=== PATIENT | male | born 1975 | race Caucasian/White ===

== ENCOUNTER 2018-03-07 17:41 | Emergency (ER) | payer MEDICAID, SELFPAY ==
[2018-03-07 17:49] VITALS: BP 142/105; PULSE 73; RESP 16; TEMP 36.7; O2SAT 96
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
[2018-03-07] MEDS: Ibuprofen 600 MG TAB PO (19:07)
== END 2018-03-07 19:17 | disposition home or self-care (01) ==
PROVIDERS: Emergency Provider Physician Assistant; PCP Nurse Practitioner
DX: S63.91XA Sprain of unspecified part of right wrist and hand, initial encounter (principal); W22.8XXA Striking against or struck by other objects, initial encounter
CPT/HCPCS: 29125; 99284; 73110; 73130; 99282; L3908

== ENCOUNTER 2018-09-16 00:18 | Outpatient (CLI) | payer MEDICAID, SELFPAY ==
--- NOTE | 2018-09-16 09:51 | DI.MRI_ITS ---
SYMPTOM/DIAGNOSIS: SEVERE LOW BACK PAIN, LUMBAR RADICULOPATHY, M54.16, M54.9,R20.0 LUMBAR SPINE MRI: Comparison is made with CT of the lumbar spine dated 05/11/16. T 1, T 2 and STIR sagittal and T 1 and T 2 axial sequences were performed. The exam is mildly limited by patient body habitus. There is mild motion. The L 1-2 and L 2-3 discs are well maintained in height. No neural foraminal narrowing or central spinal canal stenosis is seen at these levels. There is mild to moderate loss of disc height of the L 3-4 disc. There are small endplate osteophytes. There is a Schmorl's node at the inferior endplate of L 3. There is minimal disc bulging. There is no significant neural foraminal narrowing or central canal stenosis. The L 4-5 disc is unremarkable. There is no significant neural foraminal narrowing or central canal stenosis. There are bilateral L 5 pars defects which appear old, unchanged when compared with the previous CT. There is minimal L 5-S 1 spondylolisthesis, unchanged. The disc shows minimal posterior bulging. There is no central canal stenosis or neural foraminal narrowing. The aorta is normal in diameter where visualized. IMPRESSION: Stable degenerative disc changes at L 3-4. Stable findings of L 5 spondylolisthesis and slight L 5-S 1 spondylolysis. No disc herniation is seen at any level.
== END 2018-09-16 00:38 ==
PROVIDERS: PCP Nurse Practitioner; Visit Provider Nurse Practitioner
DX: M43.17 Spondylolisthesis, lumbosacral region (principal); M54.16 Radiculopathy, lumbar region; M54.5 Low back pain; R20.0 Anesthesia of skin; M51.37 Other intervertebral disc degeneration, lumbosacral region; M43.07 Spondylolysis, lumbosacral region
CPT/HCPCS: 72148

== ENCOUNTER 2020-03-30 01:36 | Outpatient (CLI) | payer MEDICAID, SELFPAY ==
--- NOTE | 2020-03-30 15:23 | DI.RAD_ITS ---
EXAM: XR LUMBAR SPINE COMPLETE CLINICAL HISTORY: Acute on chronic pain, r/o frx,SPONDYLOLISTHESIS L5-S1,M43.17. TECHNIQUE: 2D digital imaging was performed. COMPARISON: CT LUMBAR SPINE WITHOUT CONTRAST from 05/11/2016 FINDINGS: The vertebral bodies are well maintained in height. There is mild narrowing of the L3-4 disc space. The remainingdisc spaces are well maintained. There are small endplate osteophytes greatest at L3- 4. Bilateral L5 spondylolysis and mild L5-S1 spondylolisthesis appears unchanged. The SI joints are unremarkable. Surgical clips are noted in the right upper quadrant. IMPRESSION: Stable L5 spondylolysis and slight L5-S1 spondylolisthesis. DATA REPOSITORY: RADIATION DOSE DELIVERED:
== END 2020-03-30 01:56 ==
PROVIDERS: PCP Nurse Practitioner; Visit Provider Family Medicine
DX: M43.17 Spondylolisthesis, lumbosacral region (principal); M43.06 Spondylolysis, lumbar region
CPT/HCPCS: 72110

== ENCOUNTER 2020-04-23 03:23 | Outpatient (CLI) | payer MEDICAID, SELFPAY ==
[2020-04-23 15:37] LABS: HCT 46.6 % (40.0-50.0); HGB 16.1 g/dL (13.5-17.5); MCH 30.2 pg (27.0-33.0); MCHC 34.5 % (32.0-36.0); MCV 87.4 fL (80-95); MPV 9.6 fL (8.0-11.0); Platelet Count 275 10^3/uL (130-400); RBC 5.33 10^6/uL (4.36-5.78); RDW 12.5 % (11.8-14.1); RDW-SD 39.8 fL; WBC 10.28 10^3/uL (4.4-10.8)
[2020-04-23 16:21] LABS: ALT 48 U/L (16-63); AST 23 U/L (15-37); Albumin 4.2 g/dL (3.4-5.0); Alkaline Phosphatase 89 U/L (46-116); BUN 13 mg/dL (7-18); Bilirubin, Total 0.9 mg/dL (0.2-1.0); CREATININE 0.97 mg/dL (0.70-1.30); Calcium 8.9 mg/dL (8.5-10.1); Calculated LDL 115 mg/dL (<100); Chloride 103 mmol/L (98-107); Cholesterol 171 mg/dL (<200); Glucose 103 mg/dL (74-106); HDL Cholesterol 31 mg/dL (40-60); Potassium 4.1 mmol/L (3.5-5.1); Sodium 139 mmol/L (136-145); Total Protein 7.5 g/dL (6.4-8.2); Triglyceride 125 mg/dL (<150)
== END 2020-04-23 03:43 ==
PROVIDERS: PCP Nurse Practitioner; Visit Provider Nurse Practitioner
DX: E11.9 Type 2 diabetes mellitus without complications (principal); E66.9 Obesity, unspecified
CPT/HCPCS: 36415; 80053; 80061; 85027

== ENCOUNTER 2021-02-08 01:00 | Outpatient (CLI) | payer MEDICAID, SELFPAY ==
--- NOTE | 2021-02-08 06:30 | DI.US_ITS ---
Exam(s) US LOWER EXTREMITY VENOUS LT EXAM: US LOWER EXTREMITY VENOUS LT CLINICAL HISTORY: LLE edema 5 days,R60.0 TECHNIQUE: Left lower extremity venous ultrasound performed using grayscale, color-flow, and spectra l Doppler analysis. COMPARISON: No exams were available for comparison FINDINGS: The left common femoral, femoral and popliteal veins demonstrate normal compressibility, augmentation , and color Doppler. The posterior tibial veins are patent. The saphenofemoral junction is unremarka ble. There is no evidence of a Fonseca cyst. The soft tissues are unremarkable. IMPRESSION: No DVT. DATA REPOSITORY:
== END 2021-02-08 01:20 ==
PROVIDERS: PCP Nurse Practitioner; Visit Provider Nurse Practitioner
DX: R60.0 Localized edema (principal)
CPT/HCPCS: 93971

== ENCOUNTER 2021-11-23 15:28 | Outpatient (REF) | payer MEDICAID, SELFPAY ==
[2021-11-23 18:49] LABS: HCT 47.5 % (40.0-50.0); HGB 16.5 g/dL (13.5-17.5); MCH 30.3 pg (27.0-33.0); MCHC 34.7 % (32.0-36.0); MCV 87 fL (80-95); MPV 9.5 fL (8.0-11.0); Platelet Count 238 10^3/uL (130-400); RBC 5.45 10^6/uL (4.36-5.78); RDW 13.1 % (11.8-14.1); RDW-SD 41.2 fL; WBC 9.86 10^3/uL (4.4-10.8)
[2021-11-23 19:10] LABS: ALT 41 U/L (16-63); AST 23 U/L (15-37); Alkaline Phosphatase 76 U/L (46-116); Anion Gap 11.5 mmol/L (3-11); BUN 13 mg/dL (7-18); Bilirubin, Total 0.9 mg/dL (0.2-1.0); CO2 27.5 mmol/L (21.0-32.0); CREATININE 1.1 mg/dL (0.70-1.30); Calcium 8.5 mg/dL (8.5-10.1); Calculated LDL 138 mg/dL (<100); Chloride 101 mmol/L (98-107); Cholesterol 201 mg/dL (<200); Glucose 127 mg/dL (74-106); HDL Cholesterol 33 mg/dL (40-60); Potassium 4.2 mmol/L (3.5-5.1); Sodium 140 mmol/L (136-145); Total Protein 7.2 g/dL (6.4-8.2); Triglyceride 153 mg/dL (<150)
[2021-11-23 19:52] LABS: Hemoglobin A1C 6.3 % (<5.7)
== END 2021-11-23 15:29 | disposition home or self-care (01) ==
LOC: LBN 15:28
PROVIDERS: PCP Nurse Practitioner; Referring Provider Nurse Practitioner; Visit Provider Nurse Practitioner
DX: E11.9 Type 2 diabetes mellitus without complications (principal); I10 Essential (primary) hypertension; E66.9 Obesity, unspecified; F41.8 Other specified anxiety disorders
CPT/HCPCS: 80053; 80061; 85027; 83036

== ENCOUNTER 2022-07-06 03:18 | Outpatient (CLI) | payer MEDICAID, SELFPAY ==
[2022-07-06 15:34] LABS: ALT 47 U/L (16-63); AST 25 U/L (15-37); Albumin 3.9 g/dL (3.4-5.0); Alkaline Phosphatase 134 U/L (46-116); Anion Gap 11.7 mmol/L (3-11); BUN 14 mg/dL (7-18); Bilirubin, Total 0.5 mg/dL (0.2-1.0); CO2 30.3 mmol/L (21.0-32.0); CREATININE 1.3 mg/dL (0.70-1.30); Calcium 9.7 mg/dL (8.5-10.1); Calculated LDL 30 mg/dL (<100); Chloride 99 mmol/L (98-107); Cholesterol 101 mg/dL (<200); Estimated GFR 68.61 (mL/min/1.73m2); Glucose 248 mg/dL (74-106); HDL Cholesterol 28 mg/dL (40-60); Sodium 141 mmol/L (136-145); TSH (W/Ref FT4) 0.96 uIU/mL (0.36-3.74); Total Protein 7.6 g/dL (6.4-8.2); Triglyceride 218 mg/dL (<150)
[2022-07-06 15:39] LABS: Potassium 2.6 mmol/L (3.5-5.1)
[2022-07-14 14:03] LABS: Testosterone, Total 164 ng/dL (240-950)
== END 2022-07-06 03:19 | disposition home or self-care (01) ==
LOC: LBO 03:19
PROVIDERS: PCP Nurse Practitioner; Visit Provider Nurse Practitioner
DX: I10 Essential (primary) hypertension (principal); E11.9 Type 2 diabetes mellitus without complications; E78.5 Hyperlipidemia, unspecified; R53.83 Other fatigue; E66.8 Other obesity
CPT/HCPCS: 36415; 80053; 80061; 84402; 84403; 84443

== ENCOUNTER 2022-10-25 15:58 | Outpatient (REF) | payer MEDICAID, SELFPAY ==
[2022-10-25 18:52] LABS: Anion Gap 8.7 mmol/L (3-11); BUN 16 mg/dL (7-18); CO2 31.3 mmol/L (21.0-32.0); CREATININE 1.1 mg/dL (0.70-1.30); Calcium 9.6 mg/dL (8.5-10.1); Chloride 100 mmol/L (98-107); Estimated GFR 83.32 (mL/min/1.73m2); Glucose 176 mg/dL (74-106); Potassium 3.1 mmol/L (3.5-5.1); Sodium 140 mmol/L (136-145)
== END 2022-10-25 15:59 | disposition home or self-care (01) ==
LOC: LBN 15:58
PROVIDERS: PCP Nurse Practitioner; Visit Provider Nurse Practitioner
DX: E11.9 Type 2 diabetes mellitus without complications (principal); E87.6 Hypokalemia; I10 Essential (primary) hypertension
CPT/HCPCS: 80048

== ENCOUNTER 2022-12-14 00:40 | Outpatient (CLI) | payer MEDICAID, SELFPAY ==
--- NOTE | 2022-12-14 09:42 | DI.CT_ITS ---
Exam(s) CT LUMBAR SPINE WO EXAM: CT LUMBAR SPINE WO CLINICAL HISTORY: chronic low back pain,SPONDYLOLISTHESIS L 5-S1,RADICULOPATHY,PAIN DOWN LEGS. TECHNIQUE: Imaging Protocol: Axial computed tomography images with coronal and sagittal reformatted images were created and reviewed COMPARISON: CT LUMBAR SPINE WITHOUT CONTRAST from 05/11/2016 FINDINGS: Bones: The last intervertebral disc space is designated the L5/S1 level for the numbering purpose of this examination. The vertebral body heights are well maintained. There is L5 spondylolysis without significant spondylolisthesis. Mild disc space narrowing is seen at L3-L4. There endplate osteophyt es seen at several levels of the lumbar spine particularly at L3-L4 and L4-L5. There is a mild left c onvex curvature of the lower lumbar spine. T12-L1: No disc herniations or bulges are present. No central spinal canal or neural foraminal steno sis. L1-2: No disc herniations or bulges are present. No central spinal canal or neural foraminal stenosi s. L2-3: No disc herniations or bulges are present. No central spinal canal or neural foraminal stenosi s. L3-4: No disc herniations or bulges are present. No central spinal canal or neural foraminal stenosi s. L4-5: No disc herniations or bulges are present. There are degenerative changes seen at L4-L5 includ ing the facets causing moderate right neural foraminal stenosis. There is also mild left neural fora dewayne stenosis. No significant central spinal canal stenosis. L5-S1: No disc herniations or bulges are present. No central spinal canal or neural foraminal stenos is. Soft Tissues: The visualized SI joints and sacrum are will maintained. The paraspinal soft tissues a re unremarkable. IMPRESSION: 1. There is L5 spondylolysis without significant spondylolisthesis. 2. Multilevel degenerative changes in the lumbar spine resulting in neural foraminal narrowing at L4- L5, right greater than left. RADIATION DOSE DELIVERED: 1,244.61mGy.cm Total DLP 1,244.61mGy.cm Total DLP DATA REPOSITORY: All CT scans at this facility are submitted to the National Radiology Data Registry (NRDR) Dose Index Registry (DIR) with the [employer] ([employer]). RADIATION OPTIMIZATION: All CT scans at this facility use at least one of these dose optimization te chniques: automated exposure control; mA and/or kV adjustment per patient size (includes targeted exa ms where dose is matched to clinical indication); or iterative reconstruction.
== END 2022-12-14 01:00 ==
LOC: DI 00:40
PROVIDERS: PCP Nurse Practitioner; Visit Provider Nurse Practitioner
DX: M47.16 Other spondylosis with myelopathy, lumbar region (principal); M99.63 Osseous and subluxation stenosis of intervertebral foramina of lumbar region
CPT/HCPCS: 72131

== ENCOUNTER 2022-12-28 09:35 | Outpatient (REF) | payer MEDICAID, SELFPAY ==
[2023-01-01 16:44] LABS: Testosterone, Total 191 ng/dL (240-950)
== END 2022-12-28 09:36 | disposition home or self-care (01) ==
LOC: LBN 09:35
PROVIDERS: PCP Nurse Practitioner; Visit Provider Nurse Practitioner Gerontology
DX: R53.83 Other fatigue (principal); E29.1 Testicular hypofunction
CPT/HCPCS: 84403

== ENCOUNTER 2023-02-08 04:05 | Outpatient (CLI) | payer MEDICAID, SELFPAY ==
[2023-02-08 08:45] LABS: HCT 50.9 % (40.0-50.0); HGB 16.9 g/dL (13.5-17.5); MCH 29.5 pg (27.0-33.0); MCHC 33.2 % (32.0-36.0); MCV 89 fL (80-95); Platelet Count 218 10^3/uL (130-400); RBC 5.73 10^6/uL (4.36-5.78); RDW 13.2 % (11.8-14.1); RDW-SD 42.6 fL; WBC 10.16 10^3/uL (4.4-10.8)
[2023-02-08 09:43] LABS: Vitamin B12 721 pg/mL (193-986)
[2023-02-08 21:47] LABS: PSA, Screening 0.5 ng/mL (<=2.5)
[2023-02-09 14:13] LABS: Albumin 56.5 % (55.8-66.1); Albumin g/dL 3.8 g/dL (3.6-5.2); Total Protein 6.8 g/dL (6.3-8.2)
[2023-02-12 16:57] LABS: Testosterone, Total 195 ng/dL (240-950)
== END 2023-02-08 04:06 | disposition home or self-care (01) ==
LOC: LBO 04:06
PROVIDERS: Nurse Practitioner Adult Health; Nurse Practitioner Gerontology; PCP Nurse Practitioner; Visit Provider Nurse Practitioner
DX: G62.9 Polyneuropathy, unspecified (principal); E29.1 Testicular hypofunction; R53.83 Other fatigue
CPT/HCPCS: 36415; 84153; 84403; 85027; 82607; 84165

== ENCOUNTER 2023-02-28 03:59 | Outpatient (CLI) | payer MEDICAID, SELFPAY ==
[2023-02-28 15:21] LABS: Abs Immature Grans 0.03 10^3/uL (0.0-0.06); Absolute Basophil Count 0.06 10^3/uL (0.0-0.2); Absolute Eosinophil Count 0.16 10^3/uL (0.0-0.7); Absolute Lymphocyte Count 2.55 10^3/uL (1.2-3.4); Absolute Monocyte Count 0.59 10^3/uL (0.1-0.8); Absolute Neutrophil Count 6.07 10^3/uL (1.2-6.7); Basophils % 0.6; Eosinophils % 1.7; HCT 49.1 % (40.0-50.0); HGB 17.1 g/dL (13.5-17.5); Immature Grans % 0.3; MCH 30.4 pg (27.0-33.0); MCHC 34.8 % (32.0-36.0); MCV 87 fL (80-95); MPV 9.6 fL (8.0-11.0); Monocytes % 6.2; Neutrophils % 64.2; Platelet Count 226 10^3/uL (130-400); RBC 5.63 10^6/uL (4.36-5.78); RDW 12.7 % (11.8-14.1); RDW-SD 40.7 fL; WBC 9.46 10^3/uL (4.4-10.8)
[2023-02-28 16:21] LABS: Anion Gap 11.4 mmol/L (3-11); BUN 11 mg/dL (7-18); CO2 25.6 mmol/L (21.0-32.0); Calcium 9.1 mg/dL (8.5-10.1); Chloride 105 mmol/L (98-107); Estimated GFR 93.42 (mL/min/1.73m2); Glucose 133 mg/dL (74-106); Sodium 142 mmol/L (136-145)
[2023-03-02 15:48] LABS: Erythropoietin 12.9 mIU/mL (2.6 - 18.5)
[2023-03-05 16:53] LABS: JAK2 Result see interpretation
== END 2023-02-28 04:00 | disposition home or self-care (01) ==
PROVIDERS: PCP Nurse Practitioner; Referring Provider Nurse Practitioner; Visit Provider Nurse Practitioner
DX: R71.8 Other abnormality of red blood cells (principal)
CPT/HCPCS: 36415; 80048; 82668; 81270; 85025

== ENCOUNTER → 2023-03-13 00:21 | Outpatient (CLI) | payer MEDICAID, SELFPAY ==
--- NOTE | 2023-03-13 08:00 | DI.RAD_ITS ---
Exam(s) XR LUMBAR SPINE COMP W FLEX/EX EXAM: XR LUMBAR SPINE COMP W FLEX/EX CLINICAL HISTORY: Chronic low back pain,h/o L5 pars defects,m54.50. TECHNIQUE: 2D digital imaging was performed. COMPARISON: No exams were available for comparison FINDINGS: Seven views: Twelfth ribs appear rudimentary. There is no evidence of compression fracture. There is mild anterolisthesis of L5 upon S1. Is diffi cult to determine if this is related to facet arthropathy or pars defects. I suspect pars defects he re. There is no disc space narrowing at L5-S1 level but there is spina bifida occulta at posterior o sseous elements of L5 and this also appears to be a partially transitional vertebra. There is mild narrowing of L4-5 and L3-4 disc spaces and anterior osseous lipping noted both of these levels. Disc spaces above this level are un remarkable. There is no significant scoliosis. Sacroi liac joints appear unremarkable. IMPRESSION: Transitional anatomy as well as mild anterolisthesis L5 upon S1 which appears to be related to probab le pars interarticularis defects at L5 level. I note that there is also spina bifida occulta at the L5 level evident on the frontal view. Mild disc space narrowing is evident at L3-4 and L4-5 levels. There is no listhesis at these levels. No obvious facet arthropathy. DATA REPOSITORY: RADIATION DOSE DELIVERED:
== END ==
PROVIDERS: PCP Nurse Practitioner; Visit Provider Preventive Medicine Occupational Medicine
DX: M54.50 Low back pain, unspecified (principal)
CPT/HCPCS: 72114

== ENCOUNTER 2023-05-31 11:14 | Outpatient (CLI) | payer MEDICAID, SELFPAY ==
--- NOTE | 2023-05-31 06:00 | DI.RAD_ITS ---
Exam(s) XR PAIN CLINIC SACRIOILIAC 2V EXAM: XR PAIN CLINIC SACRIOILIAC 2V CLINICAL HISTORY: DX: Left Sacroiliac Joint Dysfunction TECHNIQUE: 2D and realtime digital imaging was performed. CONTRAST MATERIAL: Refer to procedure report. COMPARISON: No exams were available for comparison FINDINGS: Fluoroscopy was provided for Dr. North during the performance of a left SI joint injection. Please r efer to the procedure report for complete details. Ka,r=9.83 mGy IMPRESSION:
[2023-05-31 12:15] VITALS: BP 112/77; PULSE 82; RESP 20; TEMP 36.4; O2SAT 96
[2023-05-31 12:44] VITALS: BP 115/86; PULSE 77; RESP 11; O2SAT 98
--- NOTE | 2023-05-31 12:45 | PDOC.PAIN_ITS ---
Date of service: 05/31/23 Time of Service: 12:45 Pain Managment Procedure Note Procedure Note Procedure Note: PROCEDURE NOTE LEFT INTRA-ARTICULAR SACROILIAC JOINT INJECTION Date of Service: May 31, 2023 Patient: Angel Muñiz Provider: Thomas North DO, MPH COMMENTS: I previously evaluated the patient in the office and their symptoms in relation to the sacroiliac joint pain have remained the same. Pre-operative diagnosis: Sacroiliac joint dysfunction Post-operative diagnosis: Same Pre-procedure pain: VAS= 7/10 Angel Muñiz has been referred to our [facility] for a Left intra-articular Sacroiliac joint injection. Angel was interviewed and the medical record reviewed. There were no medical, pharmacologic, radiographic or other structural contraindications to attempting a fluoroscopically-guided, contrast-enhanced, intra-articular Sacroiliac joint injection. The risks, benefits, and potential side effects of this procedure were reviewed with the patient. Questions and concerns were addressed. After it was clear that Angel was fully informed about the procedure, the printed consent form was signed by the patient and myself. Angel was placed in the prone position on the fluoroscopy table and an automated blood pressure cuff, 3 lead EKG, and pulse oximeter were applied. The skin entry point for approaching the Left sacroiliac joint was identified under the most advantageous fluoroscopic view and marked. Following thorough Chlorhexadine preparation of the skin and draping with sterile surgical drapes, 2 mls of 1% lidocaine was infiltrated into the skin at the entry point and the surrounding subcutaneous tissues. Next, a 3.5 22G spinal needle was placed under fluoroscopic guidance into the Left sacroiliac joint. Intra-articular placement was confirmed by a clear arthrogram resulting from the injection of 0.25ml of Omnipaque-240. Next, 1 ml of Depo- Medrol 80 mg/ml was injected intra- articularly with an initial reproduction of a significant component of the usual pain. This was followed with 1 ml of 1% Lidocaine. The needle was then removed without difficulty. (49 ml of Omnipaque-240 was wasted). Angel's vital signs were stable throughout the procedure and were as recorded in nursing records. Follow up plans and appointments were discussed with Angel. Post procedure instructions were given as documented in nursing records. Having met discharge criteria, Angel was [facility] from the [facility]. COMMENTS: Post-procedure pain: VAS= 5/10. If the patient receives at least 50% improvement in pain and/or function for at least 3 months, this procedure can be repeated if needed. I personally performed this entire procedure. THOMAS NORTH DO, MPH ABPMR-subspecialty board certification in Pain Medicine [facility]
[2023-05-31] MEDS: methylPREDNISolone ACETATE 80 MG/ML VIAL IJ (12:49)
[2023-05-31] MEDS: Nerve Block Tray 1 EACH MC (12:49)
[2023-05-31] MEDS: Omnipaque 240 MG/ML 50 ML BTL IJ (12:49)
== END 2023-05-31 11:15 | disposition home or self-care (01) ==
LOC: PC 11:15
PROVIDERS: PCP Nurse Practitioner; Visit Provider Preventive Medicine Occupational Medicine
DX: M46.1 Sacroiliitis, not elsewhere classified (principal)
CPT/HCPCS: 00123; 27096; 72200; J1040; Q9967

== ENCOUNTER 2023-11-02 08:20 | Day surgery (SDC) | payer MEDICAID, SELFPAY ==
--- NOTE | 2023-11-01 21:13 | W.PM.DSUDISC ---
Date of service: 11/02/23 Time of Service: 10:33 Discharge Plan Disposition Patient Disposition: Home Condition: Good Discharge Details Reason For Visit: screening colonoscopy Attending Provider: Madhu Aguiar Primary Care Provider: Ariana Yu Home Meds and New Rx's Prescriptions: Continued lidocaine-prilocaine 2.5-2.5 % cream 5 g topical ONCE PRN (Reason: peripheral neuropathy) Qty: 30 6RF Rx Instructions: Apply to feet up to 4 times per day as needed for pain. atorvastatin 40 mg tablet 40 mg PO QPM Qty: 90 3RF Jardiance 10 mg tablet 10 mg PO DAILY Qty: 90 3RF lisinopril 20 mg tablet 20 mg PO DAILY Qty: 90 3RF acetaminophen 500 mg capsule 500 mg PO Q6H PRN dulaglutide 4.5 mg/0.5 mL pen injector See Rx Instructions .ROUTE .COMPLEX Qty: 2 6RF Dose Instruction: INJECT 0.5ML SUBCUTANEOUSLY EVERY WEEK Rx Instructions: INJECT 0.5ML SUBCUTANEOUSLY EVERY WEEK testosterone cypionate [Depo-Testosterone] 200 mg/mL oil 100 mg IM Q2W Qty: 10 3RF Rx Instructions: 0.5ml intramuscular every 2 weeks (DME) blood-glucose meter Misc See Rx Instructions .ROUTE .MEDSUPPLY Qty: 1 0RF Rx Instructions: As directed to check blood glucose. No insulin. Dispense covered brand. (DME) Blood Glucose Test Strip See Rx Instructions .ROUTE .MEDSUPPLY Qty: 200 3RF Rx Instructions: As directed to check blood glucose BID. No insulin. Dispense covered brand. (DME) lancets Misc See Rx Instructions .ROUTE .MEDSUPPLY Qty: 100 3RF Rx Instructions: As directed to check blood glucose daily. No insulin. Dispense covered brand. Discontinued bisacodyl [Dulcolax (bisacodyl)] 5 mg tablet,delayed release (DR/EC) 5 mg PO ONCE Qty: 4 0RF Rx Instructions: Take per colonoscopy instructions provided by ordering providers office polyethylene glycol 3350 17 gram/dose powder 17 g PO ONCE Qty: 238 0RF Rx Instructions: Take per colonoscopy instructions provided by ordering providers office Discharge Instructions Instructions: Colon polyps Additional Instructions: David, we were able to complete your colonoscopy today without any difficulty. Your prep was adequate, and I could see everything clearly. I did find 1 single polyp, which I removed today. That polyp will be tested, and once we know the nature of the polyp, that information will inform the timing of your next colonoscopy. These results usually take a week or so, but when the office has them, we will be in touch with recommendations. If you need anything in the meantime, please do not hesitate to call or ask at any point. 1. If tolerated, consume a soft, low fiber diet for 1-2 days. 2[address] Do not drive, drink alcohol, operate machinery, make critical decisions, or do activities that require coordination or balance for 24 hours. 3. Because air was put into your colon during the procedure, expelling air from your rectum (passing gas or farting) is normal. 4. You may not have a bowel movement for 1-3 days because of the colonoscopy prep. This is normal. 5. Go directly to the emergency room if you notice any of the following: Develop chills (warm to touch), or if you have a thermometer and your temperature is above 101 Difficulty breathing or difficultly swallowing Persistent vomiting Severe abdominal pain, other than gas cramps Severe chest pain Black, tarry stools Any bleeding ? exceeding one tablespoon 6. Call your physician if the site where your intravenous was started becomes red, swollen, painful, and warm to touch. 7. Your physician has reviewed your pre-procedure medications. Please continue to take those medications as previously ordered. You will be given specific information/education regarding any changes to your medications before leaving. Stand Alone Forms: Anesthesia Discharge Inst., Stacey Sutherland (DSU) Activity:: Activity as Tolerated Diet:: As Tolerated Discharge Orders Discharge Orders: Discharge Order (Routine); Ordered 11/01/23 Ordered By: Madhu Aguiar DS: Diagnosis Discharge Diagnosis (1) Encounter for screening colonoscopy: Status: Acute Asessment and Plan: Follow-up on polypectomy results
--- NOTE | 2023-11-01 21:15 | COLE_ITS ---
Date of service: 11/02/23 Time of Service: 10:34 Colonoscopy Report Date of procedure: 11/02/23 Pre-op diagnosis general: screening colonoscopy Post-op diagnosis procedure note: other (Colon polyp) Procedure: colonoscopy with polypectomy Surgeon: Madhu Aguiar Anesthesia Type: General:No Airway Estimated blood loss (mL): 5 Pathology: other (0.5 cm polyp at 50 cm) Complications: None Disposition: same day Indications: David is a 48 year old man who needs his first screening colonoscopy Prep: Miralax/Dulcolax Procedure Start Time: 10:01 Procedure End Time: 10:19 Retraction Time: 12 Findings: 0.25 cm flat polyp at 50 cm Procedure Description: After the induction of monitored anesthetic care, and with the patient in left lateral decubitus position, I began by performing an external anorectal exam.? Perineum and skin were normal, as was the anal verge.? There was no evidence of external hemorrhoids.? Next, I performed a digital rectal exam.? I did not appreciate any abnormal findings.? Next, I advanced a colonoscope into the rectal vault.? I performed retroflexion.? This appeared normal.? Using insufflation, I then advanced the colonoscope beyond the rectal folds and into the sigmoid colon before advancing towards the cecum. The scope was noted to be in the cecum by identification of the ileocecal valve and appendiceal orifice.? I then began withdrawing the colonoscope using repeated irrigation as necessary for full evaluation of the colonic mucosa. Around 50 cm from the anal verge I identified a 0.25 cm polyp. ?It appeared flat in character. ?I was able to remove this with a cold forcep polypectomy. ?I examined the site, and there was minimal bleeding. ?Once this was completed, I continued to withdraw the scope and examine the remainder of the colonic mucosa.?Once the scope was withdrawn to the level of the rectum, great care was taken to examine portions of the rectal folds.? Finally, the scope was withdrawn and the patient was brought to the same-day surgery recovery unit as the anesthetic wore off. ?The findings and instructions were shared with the patient prior to discharge. Nadeau Bowel Prep Nadeau Bowel Prep Right Colon: 2 Left Colon: 3 Transverse Colon: 3 Total Score: 8
[2023-11-02 08:43] VITALS: BP 138/89; PULSE 82; RESP 18; TEMP 36.6; O2SAT 97
[2023-11-02] MEDS: Lactated Ringers 1,000 ML 80 ML IV (08:47)
--- NOTE | 2023-11-02 08:52 | W.ANESPRE ---
General Info Date of Service Date Performed: 11/02/23 Height: 5 ft 11 in Weight: 153 kg Body Mass Index (BMI): 47.0 Surgical Procedure: Operation Date: 11/02/23 10:05 Proposed Procedure Side Surgeon joy Aguiar MD Meds Allergies and Home Medications Allergies Allergy/AdvReac Type Severity Reaction Status Date / Time latex Allergy Intermediate rash Verified 11/02/23 08:24 morphine Allergy Mild itching Verified 11/02/23 08:24 ibuprofen AdvReac Unknown GI upset Verified 11/02/23 08:24 Home Medication Medication Instructions Recorded blood-glucose meter #1 ea 04/27/20 blood sugar diagnostic (Blood #200 ea 06/06/22 Glucose Test strips) lancets #100 ea 06/06/22 acetaminophen 500 mg capsule 500 mg PO Q6H PRN 03/08/23 atorvastatin 40 mg tablet 40 mg PO QPM #90 tabs 05/14/23 empagliflozin 10 mg tablet 10 mg PO DAILY #90 tabs 05/14/23 (Jardiance) lidocaine-prilocaine 2.5 %-2.5 % 5 g topical ONCE PRN peripheral 05/14/23 topical cream neuropathy #30 grams lisinopril 20 mg tablet 20 mg PO DAILY #90 tabs 05/14/23 dulaglutide 4.5 mg/0.5 mL See Rx Instructions .Route 08/13/23 subcutaneous pen injector .COMPLEX #2 mL testosterone cypionate 200 mg/mL 100 mg (0.5 mL) IM Q2W 09/03/23 intramuscular oil hypogonadism #10 mL (Depo-Testosterone) Current Visit Medications: Current Medications Generic Name Dose Route Start Last Admin Trade Name Santi PRN Reason Stop Dose Admin Hyoscyamine Sulfate 0.125 mg 11/01/23 21:16 Hyoscyamine 0.125 Mg Sl/Oral/Chew SL 12/01/23 21:15 DIRECTED PRN Ringer's Solution 1,000 mls @ 80 mls/hr 11/02/23 06:00 11/02/23 08:47 IV 11/02/23 23:59 80 mls/hr INFUSION [place] Administration IV Miscellaneous Supplies 1 each 11/02/23 06:00 Iv Access IV 11/02/23 23:59 DIRECTED [place] Ondansetron HCl 4 mg 11/01/23 21:16 Ondansetron 4 Mg/2 Ml Vial IVP 12/01/23 21:15 Q4H PRN PRN Nausea / Vomiting Sodium Chloride 0 ml 11/02/23 06:00 Normal Saline Flush 10 Ml Syr IV 11/02/23 23:59 PRN PRN Sodium Chloride 0 ml 11/02/23 06:00 Normal Saline 10 Ml Vial IJ 11/02/23 23:59 DIRECTED PRN Sterile Water 0 ml 11/02/23 06:00 Water,Injection,Sterile 10 Ml Vial IJ 11/02/23 23:59 DIRECTED PRN PFSH Active Problems Active Problems: Problem Status Onset Code Encounter for screening colonoscopy Z12.11 Low back pain M54.50 Peripheral neuropathy G62.9 Pain, foot M79.673 Nail dystrophy L60.3 Hyperlipidemia E78.5 Skin lesion L98.9 Essential hypertension I10 Witnessed apneic spells R06.81 Edema of left lower extremity R60.0 Chronic back pain M54.9, G89.29 Type 2 diabetes mellitus E11.9 Obesity E66.9 IFG (impaired fasting glucose) R73.01 Lumbar transverse process fracture S32.009A Spondylolisthesis at L5-S1 level M43.17 Lumbar radiculopathy M54.16 Left leg numbness R20.0 Tobacco use disorder 09/07/16 F17.200 Spondylosis of lumbar region without myelopathy or radiculopathy 06/14/16 M47.816 Leg edema 12/01/16 R60.0 Gastroesophageal reflux disease 09/07/16 K21.9 Gallbladder disease 09/07/16 K82.9 Back pain 07/19/17 M54.9 Anxiety 09/07/16 F41.9 Gallbladder calculus with acute cholecystitis and no obstruction K80.00 Surgical History Surgical History Cholecystectomy Tobacco Smoking/Tobacco Use Status: Current every day Tobacco Type: cigarettes Smoking packs per day: 1 Smoking cigarettes per day: 20.0 Years smoked: 31 Smoking pack-years: 31.00 Alcohol Alcohol Intake: never Substance Use Substance use: Never Substance use type: does not use Vital Signs and Lab Results Vital Signs Most Recent Vital Signs in EMR: Most Recent Vital Signs Temp Pulse Resp BP Pulse Ox 36.6 C 82 18 138/89 97 11/02/23 08:43 11/02/23 08:43 11/02/23 08:43 11/02/23 08:43 11/02/23 08:43 Point of Care Results Point of Care Results: Finger Stick Blood Glucose 174 11/02/23 08:31 Lab Results Blood Type / Crossmatch: No Data to Display Complete Blood Count: No Data to Display Complete Metabolic Panel: No Data to Display Liver Function Panel: No Data to Display Coagulation Panel: No Data to Display Cardiac Panel: No Data to Display Arterial Blood Gas: No Data to Display Venous Blood Gas: No Data to Display Pancreas Panel: No Data to Display Thyroid Panel: No Data to Display Infectious Disease: No Data to Display Blood Cultures: No Data to Display Toxicology Panel: No Data to Display Anesthesia Assessment and Plan Anesthesia History Personal History: Delayed Emergence (with lap felicia many years ago) Family History: No Family History of Anesthesia Complications Exercise Tolerance Exercise Tolerance: Metabolic Equivalents<4 Pertinent Negatives Pertinent Negatives: No Symptoms of GERD, No Major Cardiovascular Symptoms or Complaints and No Major Pulmonary Symptoms or Complaints Cardiac & Pulmonary Exam Cardiac Exam: Normal S1/S2 Heart Sounds Pulmonary Exam: Clear Bilateral Breath Sounds Cardiac and Pulmonary Comment:: Questionable sleep apnea, no sleep study, encouraged him to speak to policy value calculator, smoker Implantable Cardiac Device Does patient have a Pacemaker or an ICD?: No Airway Exam Known Difficult Airway: No Mallampati Class: 3 Mouth Opening: Normal (> 3cm) Thyromental Distance: Greater than 3 cm Neck Range of Motion: Full ROM Neck Circumference: Thick Teeth Condition: Generalized Poor Dentition (none loose per patient) ASA Classification ASA Score: ASA 3 Emergency Case?: No NPO Status NPO Status: NPO Clears >2 hours, Solids >8 hours Anesthesia Plan Resuscitation Status: Full Code Anesthesia Technique: General Anesthesia Airway Planned: Natural Airway Monitors Used: Standard Monitors Preoperative Comments:: 48 y/o male with history of HTN, Type 2 DM, obesity, chronic back pain and GERD presents for colonoscopy screening. He denies a family history of colon cancer.
[2023-11-02 09:02] VITALS: BMI 47.0
--- NOTE | 2023-11-02 10:16 | BOWEL_PTH ---
PATIENT: Angel Muñiz LOC: [facility] U#:[id number] AGE/SX: 48/M ROOM: RE11/02/[address]: Madhu Aguiar MD : 1975 BED: DIS: 11/02/2023 SPEC #: [id number] RECD: 11/02/23 13:03 STATUS: [place] RE #: [id number] LAMBERTO: 11/02/23 10:[address]: Madhu Aguiar DEPT: Surgical Specimen RECD BY: Sarahi Robbins ENTERED: 11/02/23 13:04 SP TYPE: Bowel OTHR DR: Ariana Yu APRN Tissues: 1 - BIOPSY BOWEL Procedures: GROSS AND MICRO LEVEL 4 Comments: [id number]
[2023-11-02 10:32] VITALS: BP 117/68; PULSE 84; RESP 20; TEMP 36.4; O2SAT 94
[2023-11-02 10:55] VITALS: BP 106/73; PULSE 77; RESP 20; TEMP 36.6; O2SAT 98
--- NOTE | 2023-11-02 11:01 | W.ANESPOSTOP ---
Postoperative Evaluation Date, Time and Location Date Performed: 11/02/23 Time Performed: 10:42 Patient Location: Day Surgery Unit Vital Signs Most Recent Imported Vital Signs: Most Recent Vital Signs Temp Pulse Resp BP Pulse Ox 36.4 C L 84 20 117/68 94 11/02/23 10:32 11/02/23 10:32 11/02/23 10:32 11/02/23 10:32 11/02/23 10:32 Pain Score Most Recent Pain Score: Most Recent Pain Score Pain Level 0 11/02/23 10:32 Assessment Mental Status: Awake (Alert & Oriented to Patient Baseline) Airway and Respiratory Function: Patent airway with normal (patient baseline) respiratory exam Cardiovascular Function: Hemodynamically Stable Hydration Status: Adequately Hydrated Nausea & Vomiting: No Nausea or Vomiting Pain: Pt. Denies Any Pain Peripheral Nerve Block: Patient did not receive a nerve block
== END 2023-11-02 11:08 | disposition home or self-care (01) ==
LOC: SUR 08:20
PROVIDERS: PCP Nurse Practitioner; Visit Provider Surgery
PROC: 0DJD8ZZ Inspection of Lower Intestinal Tract, Via Natural or Artificial Opening Endoscopic (ICD-10-PCS; CPT 45378; principal; 2023-11-02 10:00)
DX: Z12.11 Encounter for screening for malignant neoplasm of colon (principal); I10 Essential (primary) hypertension; E11.9 Type 2 diabetes mellitus without complications; D12.5 Benign neoplasm of sigmoid colon
CPT/HCPCS: 45380; 88305; J2001; J2704

== ENCOUNTER 2023-12-25 15:55 | Outpatient (CLI) | payer MEDICAID, SELFPAY ==
--- OUTSIDE RECORDS SUMMARY | 2023-12-25 16:05 | XMS_ITS | Clinical Summary ---
Author Organization [facility] Address [address] [place] [address] Care Team Providers Care Executive Cyber Leader Name Role Phone Unknown, Provider Primary Care Provider Encounters Date Type Department Care Team Description 11/02/2023 Lab Requisition [facility] Pathology & Laboratory Medicine - [facility] [address] [place] [address] Madhu Aguiar MD Encounter for screening for malignant neoplasm of colon from Last 3 Months Social History Tobacco Use Types Packs/Day Years Used Date Smoking Tobacco: Never Assessed Interpersonal Safety Answer Date Record ed Physically Hurt Never 12/07/2019 Verbally Threaten Not on file 12/07/2019 Sex and Gender Information Value Date Recorded Sex Assigned at Not on file Gender Identity Not on file Sexual Orientation Not on file Plan of Treatment Health Maintenance Due Date Last Done Comments Hepatitis C Screen 1975 Hepatitis B Vaccine (1 of 3 - 19+ 3-dose series) 08/13 COVID-19 Vaccine ( season) 2023 Procedures Procedure Name Priority Date/Time Associated Diagnosis Comments SURGICAL PATHOLOGY Today 11/02/2023 10 :16 EDT Encounter for screening for malignant neoplasm of colon from Last 3 Months Results * SURGICAL PATHOLOGY (11/02/2023 10:16 EDT) Note to Patient The following pathology results have been interpreted by your pathologist and may be available to you before your health provider has had the opportunity to review them. Please allow time for your provider to receive these results and explore management options, if applicable. 11/05/2023 14:22 EDT [facility] Final Diagnosis A. COLON, AT 50 CM, POLYP, BIOPSY: - Fragments of tubular adenoma. 11/05/2023 14:22 [facility] Attestation By the signature below, the attending physician certifies that they have 1) personally conducted a gross and/or microscopic examination of the described specimen(s), and/or personally interpreted the results of laboratory testing of the described specimen(s), and 2) personally rendered or confirmed the above diagnosis. 11/05/2023 14:22 [facility] at [address] Clinical History Screening colo 11/05/2023 14:22 [facility] Gross Description A. Received in formalin labelled with proper patient identification (initials B, T) and polyp @ 50 cm is an aggregate of chatman tissues (0.7 x 0.3 x 0.1 cm). Entirely submitted in A1. Ernestina Mars 11/05/2023 7:36 11/05/2023 14:22 [facility] Performing Lab [facility] 11/05/2023 14:22 T [facility] Scanned Images 11/05/2023 14:22 [facility] Tissue COLON STRUCTURE / Unknown 11/02/2023 10:16 EDT 11/02/2023 20:49 EDT Madhu Aguiar MD PATHOLOGY ORDERABLES [facility] [address], [place] [address] from Last 3 Months Care Teams Executive Cyber Leader Relationship Specialty Start Date End Date Unknown, Provider, PCP - General 10/30/12
--- OUTSIDE RECORDS SUMMARY | 2023-12-25 16:05 | XMS_ITS | Encounter Summary ---
Author Organization [facility] Address [address] [place] [address] Care Team Providers Care Weapons Officer Naval Activity Name Role Phone Unknown, Provider Primary Care Provider Encounter Details Date Type Department Care Team (Late st Contact Info) Description 02/08/2023 Lab Requisition [facility] Pathology & Laboratory Medicine - [facility] [address] [place] [address] Outr Resulting Lab, Provider Social History Tobacco Use Types Packs/Day Years Used Date Smoking Tobacco: Never Assessed Interpersonal Safety Answer Date Record ed Physically Hurt Never 12/07/2019 Verbally Threaten Not on file 12/07/2019 Sex and Gender Information Value Date Recorded Sex Assigned at Not on file Gender Identity Not on file Sexual Orientation Not on file documented as of this encounter Plan of Treatment Not on file documented as of this encounter Procedures Procedure Name Priority Date/Time Associated Diagnosis Comments SPEP, INCLUDES QUANTITATION OF MONOCLONAL SPIKE PERFORMABLE Today 02/08/2023 8:12 EDT SPEP, INCLUDES QUANTITATION OF MONOCLONAL SPIKE Routine 02/08/2023 8:12 EDT PROTEIN, TOTAL Today 02/08/2023 8:12 EDT documented in this encounter Results * (ABNORMAL) SPEP, INCLUDES QUANTITATION OF MONOCLONAL SPIKE PERFORMABLE (02/08/2023 8:12 EDT) Albumin % 56.5 55.8 - 66.1 % 02/09/2023 14:05 EDT [facility] Albumin g/dL 3.8 3.6 - 5.2 g/dL 02/09/2023 14:05 EDT [facility] Alpha-1 % 4.6 2.9 - 4.9 % 02/09/2023 14:05 [facility] Alpha-1 g/dL 0.30 0.15 - 0.40 g/dL 02/09/2023 14:05 [facility] Alpha-2 % 10.4 7.1 - 11.8 % 02/09/2023 14:05 [facility] Alpha-2 g/dL 0.70 0.50 - 1.00 g/dL 02/09/2023 14:05 [facility] Beta % 14.6(H) 8.4 - 13.1 % 02/09/2023 14:05 [facility] Beta g/dL 1.00 0.60 - 1.20 g/dL 02/09/2023 14:05 [facility] Gamma % 13.9 11.1 - 18.8 % 02/09/2023 14:05 [facility] Gamma g/dL 0.90 0.60 - 1.60 g/dL 02/09/2023 14:05 [facility] SPEP Comment No apparent monoclonal protein seen on serum electrophoresis 02/09/2023 14:05 [facility] Comment:See scanned/suppleme ntary report. Total Protein 6.8 6.3 - 8.2 g/dL 02/09/2023 14:05 [facility] Blood VENOUS BLOOD / Unknown 02/08/2023 8:12 EDT 02/08/2023 20:43 EDT Provider Outr Resulting Lab CHEMISTRY & BLOOD GAS ORDERABLES [facility] [address] [place] [address] * PROTEIN, TOTAL (02/08/2023 8:12 EDT) Blood VENOUS BLOOD / Unknown 02/08/2023 8:12 EDT 02/08/2023 20:43 EDT Provider Outr Resulting Lab CHEMISTRY & BLOOD GAS ORDERABLES [facility] [address] [place] [address] documented in this encounter Visit Diagnoses Not on filedocumented in this encounter Care Teams Weapons Officer Naval [employer] Relationship Specialty Start Date End Date Unknown, Provider, PCP - General 10/30/12 documented as of this encounter
--- OUTSIDE RECORDS SUMMARY | 2023-12-25 16:05 | XMS_ITS | Encounter Summary ---
Author Organization [facility] Address [address] [place] [address] Care Team Providers Care Veterinary Livestock Inspector Name Role Phone Unknown, Provider Primary Care Provider [phone] Encounter Details Date Type Department Care Team (Late st Contact Info) Description 10/29/2012 Results Only [place] [facility] - [facility] [address] [place] [address] Elfego Chau, DO [address] [facility] [address] [place] [address] Social History Tobacco Use Types Packs/Day Years Used Date Smoking Tobacco: Never Assessed Sex and Gender Information Value Date Recorded Sex Assigned at Not on file Gender Identity Not on file Sexual Orientation Not on file documented as of this encounter Plan of Treatment Not on file documented as of this encounter Procedures Procedure Name Priority Date/Time Associated Diagnosis Comments SURGICAL PATHOLOGY Routine 10/29/2012 21 :13 EDT documented in this encounter Results * SURGICAL PATHOLOGY (10/29/2012 21:13 EDT) Pathology Report: SURGICAL PATHOLOGY REPORT Reports generated via electronic interface contain original data; however they are lacking the format of the original report. Caution should be taken when reading/interpreti ng unformatted reports. Name: ? LESA DARIAN ? Accession #: ? [id number] ? : ? 1975 (Age: 37) ??M ? Collect Date: ? 10/29/2012 ? Location: ? [facility] ? Receive Date: ? 10/30/2012 ? Provider: ELFEGO CHAU DO Copy to: [facility] ? Final Pathologic Diagnosis: ? GALLBLADDER, CHOLECYSTECTOMY: - ?Acute on chronic cholecystitis with serositis. - ? Cholelithiasis. - ? One reactive pericystic lymph node. - ? Small portion of liver bed with reactive change. ?? Document reviewed and electronically signed by: ASHLEIGH OLIVAREZ MD Report ??Date: 11/02/2012 19:07 By the signature above, the attending physician certifies that he/she has personally conducted a gross and/or microscopic examination of the described specimens and rendered or confirmed the above diagnosis. Specimen(s) Received: Gallbladder Clinical History: Acute cholecystitis Gross Description: Received in formalin labelled with proper patient identification (initials B, T) and gallbladder is an 11.0 cm in length x 2.7 cm in diameter gallbladder received partially incised, including a short segment cystic duct which measures 0.5 cm in length x 0.5 cm in diameter (proximal resection margin is blue inked). There are two mixed type choleliths impacted within the proximal gallbladder body immediately adjacent to the cystic duct which measure 1.7 and 1.5 cm in greatest dimension. The gallbladder also contains an additional 1.7 cm in greatest dimension similar mixed type cholelith. The mucosa is chatman to focally brown, velvety to slightly flat and focally hyperemic. The gallbladder wall measures up to 0.3 cm in thickness and is unremarkable. The serosa is dull, chatman focally brown-yellow. There is ??moderate subserosal adipose tissue. There is a 0.8 x 0.6 x 0.6 cm firm chatman and white cystic duct lymph node. ??Angle Dozer Operator sections of the specimen are submitted as follows: BLOCK HERNANDEZ A1- ??proximal cystic duct margin (blue ink and en face), along with sections of upper and lower gallbladder A2- ??bisected cystic duct lymph node J Tessitore 10/31/2012 11:15 AM End of Report [facility] 10/29/2012 21:1 3 EDT 10/30/2012 21:13 EDT Elfego Chau DO PATHOLOGY ORDER ESTUARDO [facility] [address] [place] [address] documented in this encounter Visit Diagnoses Not on filedocumented in this encounter Care Teams Veterinary Livestock Inspector Relationship Specialty Start Date End Date Unknown, Provider, PCP - General 10/30/12 documented as of this encounter
--- OUTSIDE RECORDS SUMMARY | 2023-12-25 16:05 | XMS_ITS | Encounter Summary ---
Author Organization [facility] [place] [address] Care Team Providers Care Train Gate Attendant Name Role Phone David Cardona MD, Jose L Primary Care Provider [phone] Encounter Details Date Type Department Care Team (Latest Contact Info) Description 05/11/2016 - 05/11/2016 12:14 AM EST Hospital Encounter [place] [id number] Valdo Kathleen MD [facility] [place] [address] Pain Discharge Disposition: Home Social History Tobacco Use Types Packs/Day Years Used Date Smoking Tobacco: Never Assessed Sex and Gender Information Value Date Recorded Sex Assigned at Not on file Gender Identity Not on file Sexual Orientation Not on file documented as of this encounter Medications at Time of Discharge Medication Sig Dispensed Refills Start Date End Date CIS Free Text Med - Phenergan 25M Suppository(s), VA, Q12H,PRN 07/03/2005 08/01/2016 OXYcodone-acetaminophen (PERCOCET) 5-325 mg per tablet 1-2 Tablet(s), PO, Q6H 01/02/2005 08/01/2016 penicillin v potassium (VEETID) 500 mg tablet 500MG, PO, Four times daily 01/02/2005 08/01/2016 documented as of this encounter Plan of Treatment Not on file documented as of this encounter Procedures Procedure Name Priority Date/Time Associated Diagnosis Comments FILM LIBRARY STORAGE ONLY CT SPINE Routine 05/11/2016 12:00 AM EST Pain documented in this encounter Results * Film Library- Storage Only CT Spine (05/11/2016 12:00 AM EST) Narrative [facility] - 07/27/2016 9:30 AM EDT This exam is for storage only and is auto-finalizing. Valdo Kathleen MD IM FILM LIBRARY ORD ERABLES Performing Organization Address City/State/[facility] Co de Phone Number [place], [place] documented in this encounter Visit Diagnoses Diagnosis Pain Generalized pain documented in this encounter Care Teams Train Gate Attendant Relationship Specialty Start Date End Date [place] [address] PCP - General 03/29/10 07/31/16 documented as of this encounter
--- OUTSIDE RECORDS SUMMARY | 2023-12-25 16:05 | XMS_ITS | Encounter Summary ---
Author Organization [facility] Address [facility] [place] [address] Care Team Providers Care Hot Billet Shear Operator Name Role Phone Unknown Primary Care Provider Unavailabl e Reason for Referral * Physical Therapy (Routine) - Specialty Diagnoses / Procedures Referred By Contac t Referred To Contact Physical Therapy Diagnoses Spondylolisthesis at L5-S1 level AlonzocaroAbhay PA [facility] [place] [address] Referral ID Status Reason Start Date Expiration Date V isits Requested Visits Authorized [id number] Evaluate and Treat 08/29/2016 02/25/2017 12 12 Encounter Details Date Type Department Care Team (Latest Contact Info) Description 08/29/2016 Orders [place] [address] Tata Mclaughlin RN Spondylolisthesis at L5-S1 level Social History Tobacco Use Types Packs/Day Years Used Date Smoking Tobacco: Every Day Cigarettes Smokeless Tobacco: Never Sex and Gender Information Value Date Recorded Sex Assigned at Not on file Gender Identity Not on file Sexual Orientation Not on file documented as of this encounter Progress Notes * Tata Mclaughlin RN - 08/29/2016 1:08 PM EDT Received call from pt who saw Mr Luevano late July for acute on chronic back pain. Reports he wenta period of time without insurance so was unable to pursue recommended treatment. Pt report he now has medicaid and would like to initiate physical therapy in his community. Reviewed office note. External PT order placed as discussed an a option when the pt had the interest and means to pursue it locally. Referral faxed to [facility], Rehab Medicine Dept per pt request. Pt will call the hospital to set up his PT if he does not here from them promptly. documented in this encounter Plan of Treatment Scheduled Referrals Name Type Priority Associated Diagnoses Orde r Schedule Referral to Physical Therapy Outpatient Referral Routine Spondylolisthesis at L5-S1 level Ordered: 08/29/2016 documented as of this encounter Visit Diagnoses Diagnosis Spondylolisthesis at L5-S1 level Congenital spondylolisthesis documented in this encounter Care Teams Hot Billet Shear Operator Relationship Specialty Start Date End Date Unknown None PCP - General 08/01/16 05/20/20 documented as of this encounter
--- OUTSIDE RECORDS SUMMARY | 2023-12-25 16:05 | XMS_ITS | Clinical Summary ---
Author Organization [facility] Address [facility] [place] [address] Care Team Providers Care Ranger Aide Name Role Phone Ariana Yu APRN Primary Care Provider [phone] Allergies No known active allergies Medications Medication Sig Dispensed Refills Start Date End Date Status ibuprofen (ADVIL;MOTRIN) 200 mg Tablet Take 400 mg by mouth every 6 hours as needed for Pain. Active acetaminophen (TYLENOL) 500 mg Tablet Take 2,000 mg by mouth every 6 hours as needed for Pain. Active cyclobenzaprine (FLEXERIL) 10 mg Tablet Take 1 tablet by mouth 3 times daily as needed for Muscle spasms. 30 tablet 1 08/01/2016 Active meloxicam (MOBIC) 15 mg Tablet Take 1 tablet by mouth daily. 30 tablet 1 08/01/2016 Active Social History Tobacco Use Types Packs/Day Years Used Date Smoking Tobacco: Every Day Cigarettes Smokeless Tobacco: Never Sex and Gender Information Value Date Recorded Sex Assigned at Not on file Gender Identity Not on file Sexual Orientation Not on file Last Filed Vital Signs Vital Sign Reading Time Taken Comments Blood Pressure 137/82 08/01/2016 3:58 PM EDT Pulse - - Temperature - - Respiratory Rate - - Oxygen Saturation - - Inhaled Oxygen Concentration - - Weight 147.4 kg (325 lb) 08/01/2016 3:58 PM EDT Height 182.9 cm (6') 08/01/2016 3:58 PM EDT Body Mass Index 44.08 08/01/2016 3:58 PM EDT Plan of Treatment Health Maintenance Due Date Last Done Comments CT Colonography 1975 Colonoscopy 1975 Colorectal Cancer Screening 1975 FIT DNA 1975 FIT 1975 Sigmoidoscopy (10 year) with FIT yearly 1975 Sigmoidoscopy 1975 HIV screen 08/13/1993 Hepatitis C Screening 08/13/1993 Lipid Screening 08/13/1993 Hepatitis B vaccine (0-59 yrs) (1) 08/13/1994 Tdap adult 08/13/1994 Tetanus vaccine 08/13/1994 Covid-19 Vaccine (1 - 2022-24 season) 2023 Influenza (Flu) vaccine (1 o f 1 - Influenza standard series) 01/06/2024 Care Teams Ranger Aide Relationship Specialty Start Date End Date Ariana Yu APRN [address] [place] [address] PCP - General Internal Medicine 05/21/20
--- OUTSIDE RECORDS SUMMARY | 2023-12-25 16:05 | XMS_ITS | Encounter Summary ---
Author Organization [facility] Address [address] [place] [address] Care Team Providers Care Fraternity House Cook Name Role Phone Unknown, Provider Primary Care Provider Encounter Details Date Type Department Care Team (Late st Contact Info) Description 11/02/2023 Lab Requisition [facility] Pathology & Laboratory Medicine - [address] [address] [place] [address] [place] [address], [address] [place], [place] [id number] Encounter for screening for malignant neoplasm of colon Social History Tobacco Use Types Packs/Day Years [...] for screening for malignant neoplasm of colon documented in this encounter Results * SURGICAL PATHOLOGY (11/02/2023 10:16 EDT) Note to Patient The following pathology results have been interpreted by your pathologist and may be available to you before your health provider has had the opportunity to review them. Please allow time for your provider to receive these results and explore management options, if applicable. 11/05/2023 14:22 EDT [facility] Final Diagnosis A. COLON, AT 50 CM, POLYP, BIOPSY: - Fragments of tubular adenoma. 11/05/2023 14:22 [facility] Attestation By the signature below, the attending physician certifies that they have 1) personally conducted a gross and/or microscopic examination of the described specimen(s), and/or personally interpreted the results of laboratory testing of the described specimen(s), and 2) personally rendered or confirmed the above diagnosis. 11/05/2023 14:22 [facility] at 1422 Clinical History Screening colo 11/05/2023 14:22 [facility] Gross Description A. Received in formalin labelled with proper patient identification (initials B, T) and polyp @ 50 cm is an aggregate of chatman tissues (0.7 x 0.3 x 0.1 cm). Entirely submitted in A1. Ernestina Mars 11/05/2023 7:36 11/05/2023 14:22 [facility] Performing Lab [facility] 11/05/2023 14:22 [facility] Scanned Images 11/05/2023 14:22 [facility] Tissue COLON STRUCTURE / Unknown 11/02/2023 10:16 EDT 11/02/2023 20:49 EDT Madhu Aguiar MD PATHOLOGY ORDERABLES Performing Organization Address City/State/[facility] Co de Phone Number [facility] [address] [place] [id number] documented in this encounter Visit Diagnoses Diagnosis Encounter for screening for malignant neoplasm of colon Special screening for malignant neoplasms, colon documented in this encounter Care Teams Fraternity House Cook Relationship Specialty Start Date End Date Unknown, Provider, PCP - General 10/30/12 documented as of this encounter
--- OUTSIDE RECORDS SUMMARY | 2023-12-25 16:05 | XMS_ITS | Encounter Summary ---
Author Organization [facility] [place] [address] Care Team Providers Care Commercial Print Salesman Name Role Phone David Cardona MD, Jose L Primary Care Provider [phone] Encounter Details Date Type Department Care Team (Latest Contact Info) Description 05/11/2016 12:15 AM EST - 05/11/2016 11:59 PM EST Hospital Encounter [place] [address] Valdo Kathleen MD [facility] [address] Pain Discharge Disposition: Home Social History Tobacco [...] Free Text Med - Phenergan 25M Suppository(s), FL, Q12H,PRN 07/03/2005 08/01/2016 OXYcodone-acetaminophen (PERCOCET) 5-325 mg per tablet 1-2 Tablet(s), PO, Q6H 01/02/2005 08/01/2016 penicillin v potassium (VEETID) 500 mg tablet 500MG, PO, Four times daily 01/02/2005 08/01/2016 documented as of this encounter Plan of Treatment Not on file documented as of this encounter Procedures Procedure Name Priority Date/Time Associated Diagnosis Comments FILM LIBRARY STORAGE ONLY CT PELVIS Routine 05/11/2016 12:15 AM EST Pain documented in this encounter Results * Film Library- Storage Only CT Pelvis (05/11/2016 12:15 AM EST) Narrative [facility] - 07/27/2016 9:31 AM EDT This exam is for storage only and is auto-finalizing. Valdo Kathleen MD IMG FILM LIBRARY ORD ERABLES Performing Organization Address City/State/[facility] Co de Phone Number [place], [place] documented in this encounter Visit Diagnoses Diagnosis Pain Generalized pain documented in this encounter Care Teams Commercial Print Salesman Relationship Specialty Start Date End Date Jose L Hernandez MD [address] [place] [address] [address] [facility] [place] [address] PCP - General 03/29/10 07/31/16 documented as of this encounter
--- OUTSIDE RECORDS SUMMARY | 2023-12-25 16:05 | XMS_ITS | Encounter Summary ---
Author Organization [facility] Address [facility] [place] [address] Care Team Providers Care Fur Blowing Machine Operator Name Role Phone Unknown Primary Care Provider Unavailabl e Reason for Visit * Reason Comments Back Pain Left Leg Pain * Consultation (Routine) - Closed Specialty Diagnoses / Procedures Referred By Contac t Referred To Contact Orthopaedics Diagnoses lumbar spondylosis/ CT 05/11/16 [facility] Jason Ann MD [address] [place] [address] [facility] [address] [place] [address] Referral ID Status Reason Start Date Expiration Date Visits Re quested Visits Authorized [id number] Closed 07/25/2016 07/25/2017 1 1 Encounter Details Date Type Department Care Team (Latest Contact Info) Description 08/01/2016 4:00 PM EDT Office [place] [address] Abhay Luevano [place] [facility] [place] [address] Spondylolisthesis at L5-S1 level Social History Tobacco Use Types Packs/Day Years Used Date Smoking Tobacco: Every Day Cigarettes Smokeless Tobacco: Never Sex and Gender Information Value Date Recorded Sex Assigned at Not on file Gender Identity Not on file Sexual Orientation Not on file documented as of this encounter Last Filed Vital Signs Vital Sign Reading Time Taken Comments Blood Pressure 137/82 08/01/2016 3:58 PM EDT Pulse - - Temperature - - Respiratory Rate - - Oxygen Saturation - - Inhaled Oxygen Concentration - - Weight 147.4 kg (325 lb) 08/01/2016 3:58 PM EDT Height 182.9 cm (6') 08/01/2016 3:58 PM EDT Body Mass Index 44.08 08/01/2016 3:58 PM EDT documented in this encounter Progress Notes * Abhay Luevano, PATRICA - 08/01/2016 4:00 PM EDT Subjective: Angel Muñiz is a 40-year-old male seen today at the request of Dr. Ann for chief complaint of low back pain and left lower extremity pain, present over an acute on chronic basis with symptoms of low back pain for several years but worsening over the past 3 months after a fallinjury that occurred on May 2016. He reports this as a slip and fall incident around his residence, [place]. She reports tenderness over the midline low back, and otherwise no further radiating pain over the left buttock, left posterior lateral thigh, without symptoms past the knee. She denies any numbness or weakness with this. He finds some improvement with sitting and bending forward and otherwise worsening with prolonged standing and walking. He notes his tolerance for these activities as about 10 minutes or less. Prior treatments so far been limited. He is currently without medical insurance, and is in the process of applying for Medicaid [place]. So far he has had oral medications, Advil and Tylenol with some mild to moderate improvement. He mentions having obtained some independent home exercises for one acquaintance, without much improvement. He denies prior spine surgeries. Review of systems is negative for GI, , constitutional symptoms. He smokes one pack per day. Denies alcohol use. He was last working in April 2016. Currently, hehas not been able to work for the past 3 months, and is not receiving any compensation whatsoever, and mentions being in the process of litigation due to his injury from May 2016. Objective: This is a morbidly obese 40-year-old gentleman who appears his stated age and is in no acute distress. Height is 6 feet, weight is 225 pounds, body mass index 44.2. His gait is antalgic onthe left side. He is able to toe walk and heel walk without much difficulty. He has perhaps mild step-off in the lower lumbar spine. He is diffusely tender to palpation of the midline low back and over the left sciatic notch. Lumbar flexion to about 40??, lumbar extension to about 5??. Reflexes are+1 at both knees and both ankles. Negative straight leg raising bilaterally. There is no clonus or Babinski. Palpable peripheral pulses. CT of the lumbar spine from 05/11/2016 was reviewed today. This is most significant for the following. There is a small nondisplaced left L2 transverse process fracture. At L5-S1, there is grade 1 spondylolisthesis with bilateral pars defects. Assessment/plan: Angel Muñiz is a 40-year-old male seen today for chief complaint of acute onchronic low back pain. This in the context of imaging findings of a minimally displaced left L2 transverse process fracture, over 3 months ago, from a slip and fall injury on the ice, and otherwise chronic appearing of isthmic spondylolisthesis L5-S1. He does appear to have intermittent left radicular symptoms within the left L5 distribution, not unexpected with his spondylolisthesis. His situation however is complicated by several other issues, such as pending litigation, application for Medicaid, and current inability to go to work, without any compensation at present. I discussed further treatment options at present. Unfortunately, physical therapy is quite challenging for him to do at present given his lack of insurance, and he was not willing to work with our spine centerphysical therapist, as he lives over 2 hours away. We discussed further treatment options in the pending after he obtains saw insurance with Medicaid, during which I advised him to contact our office. At present, we will initiate further medication treatments, which in his case will be meloxicam 15 mg, as well as cyclobenzaprine 10 mg at bedtime. He has been on prior treatment with ibuprofen 600 mg, and diazepam 5 mg, from Dr. Ann's office, but apparently without much improvement. Once he obtains insurance, we will consider beginning with a course of at least 4 weeks of physicaltherapy which she would like to do locally, and if there is no improvement with this, considerationof surgical consultation for his isthmic spondylolisthesis L5-S1, versus injection treatments with our anesthesia pain clinic. He has the option of applying for financial assistance with [facility], but this will not be needed if he is able to obtain Medicaid sooner. I did advise him strongly regarding smoking cessation, as this would not only improve his overall health, but would also be beneficial a week to consider further interventions for his low back, particularly surgical decompression and fusion. documented in this encounter Plan of Treatment Not on file documented as of this encounter Visit Diagnoses Diagnosis Spondylolisthesis at L5-S1 level Congenital spondylolisthesis documented in this encounter Care Teams Fur Blowing Machine Operator Relationship Specialty Start Date End Date Unknown None PCP - General 08/01/16 05/20/20 documented as of this encounter
--- OUTSIDE RECORDS SUMMARY | 2023-12-25 16:05 | XMS_ITS | Encounter Summary ---
Author Organization [facility] Address [address] [place] [address] Care Team Providers Care Sales Agent Pest Control Service Name Role Phone Unknown, Provider Primary Care Provider Encounter Details Date Type Department Care Team (Late st Contact Info) Description 02/08/2023 Lab Requisition [facility] Pathology & Laboratory Medicine - [facility] [address] [place] [address] Outr Resulting Lab, Provider Social History Tobacco [...] Procedure Name Priority Date/Time Associated Diagnosis Comments PSA TOTAL, DIAGNOSTIC Routine 02/08/2023 8:12 EDT documented in this encounter Results * PSA TOTAL, DIAGNOSTIC (02/08/2023 8:12 EDT) PSA 0.5 <=2.5 ng/mL 02/08/2023 21:[address] [facility] Blood VENOUS BLOOD / Unknown 02/08/2023 8:12 EDT 02/08/2023 20:[address] [facility] - 02/08/2023 21:43 EDT NOTE: Serum PSA concentration should not be interpreted as absolute evidence for the presence or absence of malignant disease. Assayed on Siemens ADVIA [place] XPT using chemiluminescent technology.??Values obtained by using different assay methods cannot be used interchangeably. Provider Outr Resulting Lab CHEMISTRY & BLOOD GAS ORDERABLES [facility] [address] [place] [address] documented in this encounter Visit Diagnoses Not on filedocumented in this encounter Care Teams Sales Agent Pest Control Service Relationship Specialty Start Date End Date Unknown, Provider, PCP - General 10/30/12 documented as of this encounter
--- OUTSIDE RECORDS SUMMARY | 2023-12-25 16:05 | XMS_ITS | Referral Summary ---
Author Organization [facility] Address [address] [place] [address] Care Team Providers Care General Teller Name Role Phone Unknown, Provider Primary Care Provider Encounters Date Type Department Care Team Description 11/02/2023 Lab Requisition [facility] Pathology & Laboratory Medicine - [facility] [address] [place] [address] Madhu Aguiar MD Encounter for screening for [...] Orientation Not on file Plan of Treatment Not on file Procedures Procedure Name Priority Date/Time Associated Diagnosis [...] management options, if applicable. 11/05/2023 14:22 EDT [facility] Final Diagnosis A. COLON, AT 50 CM, POLYP, BIOPSY: - Fragments of tubular adenoma. 11/05/2023 14:22 EDT [facility] Attestation By the signature below, the attending physician certifies that they have 1) personally conducted a gross and/or microscopic examination of the described specimen(s), and/or personally interpreted the results of laboratory testing of the described specimen(s), and 2) personally rendered or confirmed the above diagnosis. 11/05/2023 14:22 EDT [facility] at 1422 Clinical History Screening colo 11/05/2023 14:22 EDT [facility] Gross Description A. Received in formalin labelled with proper patient identification (initials B, T) and polyp @ 50 cm is an aggregate of chatman tissues (0.7 x 0.3 x 0.1 cm). Entirely submitted in A1. Ernestina Mars 11/05/2023 7:36 11/05/2023 14:22 EDT [facility] Performing Lab [facility] 11/05/2023 14:22 EDT [facility] Scanned Images 11/05/2023 14:22 EDT [facility] Tissue COLON STRUCTURE / Unknown 11/02/2023 10:16 EDT 11/02/2023 20:49 EDT Madhu Aguiar MD PATHOLOGY ORDERABLES [facility] [address] [place] [address] from Last 3 Months Care Teams General Teller Relationship Specialty Start Date End Date Unknown, Provider, PCP - General 10/30/12
[2023-12-28 17:00] LABS: Testosterone, Total 184 ng/dL (240-950)
== END 2023-12-25 15:56 | disposition home or self-care (01) ==
LOC: LBO 16:04
PROVIDERS: PCP Nurse Practitioner; Visit Provider Nurse Practitioner Gerontology
DX: E29.1 Testicular hypofunction (principal)
CPT/HCPCS: 36415; 84403

== ENCOUNTER 2024-04-01 02:11 | Outpatient (CLI) | payer MEDICAID, SELFPAY ==
[2024-04-01 09:42] LABS: HCT 49.5 % (40.0-50.0); HGB 17.1 g/dL (13.5-17.5); MCH 30.2 pg (27.0-33.0); MCHC 34.5 % (32.0-36.0); MCV 88 fL (80-95); MPV 9.6 fL (8.0-11.0); Platelet Count 207 10^3/uL (130-400); RBC 5.66 10^6/uL (4.36-5.78); RDW 12.4 % (11.8-14.1); RDW-SD 39.8 fL; WBC 10.43 10^3/uL (4.4-10.8)
[2024-04-01 10:10] LABS: ALT 33 U/L (16-63); AST 19 U/L (15-37); Alkaline Phosphatase 107 U/L (46-116); Anion Gap 6.4 mmol/L (3-11); BUN 12 mg/dL (7-18); CO2 26.6 mmol/L (21.0-32.0); CREATININE 1.1 mg/dL (0.70-1.30); Calcium 9.2 mg/dL (8.5-10.1); Calculated LDL 40 mg/dL (<100); Chloride 103 mmol/L (98-107); Cholesterol 85 mg/dL (<200); Estimated GFR 82.81 (mL/min/1.73m2); Glucose 106 mg/dL (74-106); HDL Cholesterol 33 mg/dL (40-60); Potassium 3.9 mmol/L (3.5-5.1); Sodium 136 mmol/L (136-145); Total Protein 7.8 g/dL (6.4-8.2); Triglyceride 60 mg/dL (<150)
[2024-04-06 09:13] LABS: Testosterone, Total 364 ng/dL (240-950)
== END 2024-04-01 02:12 | disposition home or self-care (01) ==
LOC: LBO 02:11
PROVIDERS: PCP Nurse Practitioner; Visit Provider Nurse Practitioner Gerontology
DX: E29.1 Testicular hypofunction (principal); E78.5 Hyperlipidemia, unspecified; I10 Essential (primary) hypertension; E11.9 Type 2 diabetes mellitus without complications
CPT/HCPCS: 36415; 80053; 80061; 84403; 85027

== ENCOUNTER 2024-05-21 02:06 | Outpatient (CLI) | payer MEDICAID, SELFPAY ==
--- NOTE | 2024-05-21 11:10 | DI.MRI_ITS ---
Exam(s) MR LUMBAR SPINE WO EXAM: MR LUMBAR SPINE WO CLINICAL HISTORY: Hx pars defect with worsening left leg pain,lumbar radiculitis,m54.16. TECHNIQUE: Multiplanar multisequence MRI of the Lumbar spine was performed. CT CT LUMBAR SPINE WO from 12/14/2022 CR XR LUMBAR SPINE COMP W FLEX/EX from 03/13/2023 FINDINGS: Bones: The last intervertebral disc space is designated the L5/S1 level for the numbering purpose of this ex amination. The vertebral body heights are well maintained. Alignment: Unremarkable. The marrow signal characteristics are unremarkable. Cord: The conus tip ends at the T12 level. It is of normal size and signal intensity. T12-L1: No focal disc herniation is present. No central spinal canal stenosis.No neural foraminal st enosis. L1-2: No focal disc herniation is present. No central spinal canal stenosis.No neural foraminal sten osis. L2-3: No focal disc herniation is present. No central spinal canal stenosis.No neural foraminal ari nosis. L3-4: Mild loss of disc height. Small endplate osteophytes and mild disc bulging.No focal disc herni ation is present. No central spinal canal stenosis.No neural foraminal stenosis. L4-5: Mild disc bulging. Mild facet degenerative changes. Mild right neural foraminal narrowing. No focal disc herniation is present. No central spinal canal stenosis.No neural foraminal stenosis. L5-S1: Bilateral L5 pars defects. Slight L5-S1 spondylolisthesis. No focal disc herniation is prese nt. No central spinal canal stenosis.No neural foraminal stenosis. The visualized SI joints and sacrum are unremarkable. Soft tissues: The paraspinal soft tissues are unremarkable. IMPRESSION: Bilateral L5 pars defects and slight L5-S1 spondylolisthesis. Degenerative disc changes at L3-4 and L4-5. Mild right neural foraminal narrowing at L4-5. No focal disc herniation or central canal stenosis.. DATA REPOSITORY:
== END 2024-05-21 02:26 ==
LOC: DI 02:06
PROVIDERS: PCP Nurse Practitioner; Visit Provider Preventive Medicine Occupational Medicine
DX: M54.16 Radiculopathy, lumbar region (principal)
CPT/HCPCS: 72148

== ENCOUNTER 2024-07-16 04:23 | Outpatient (CLI) | payer MEDICAID, SELFPAY ==
[2024-07-16 09:28] LABS: HCT 51.5 % (40.0-50.0); HGB 17.3 g/dL (13.5-17.5); MCH 29.9 pg (27.0-33.0); MCHC 33.6 % (32.0-36.0); MCV 89 fL (80-95); MPV 9.1 fL (8.0-11.0); Platelet Count 196 10^3/uL (130-400); RBC 5.78 10^6/uL (4.36-5.78); RDW 12.8 % (11.8-14.1); WBC 11.06 10^3/uL (4.4-10.8)
[2024-07-20 15:22] LABS: Testosterone, Total 126 ng/dL (240-950)
== END 2024-07-16 04:24 | disposition home or self-care (01) ==
PROVIDERS: PCP Nurse Practitioner; Visit Provider Nurse Practitioner Gerontology
DX: E29.1 Testicular hypofunction (principal)
CPT/HCPCS: 36415; 84403; 85027

== ENCOUNTER 2025-01-28 04:11 | Outpatient (CLI) | payer MEDICAID, SELFPAY ==
[2025-01-28 09:35] LABS: HCT 48.9 % (40.0-50.0); HGB 16.7 g/dL (13.5-17.5); MCH 30.0 pg (27.0-33.0); MCHC 34.2 % (32.0-36.0); MCV 88 fL (80-95); MPV 9.3 fL (8.0-11.0); Platelet Count 205 10^3/uL (130-400); RBC 5.56 10^6/uL (4.36-5.78); RDW 12.5 % (11.8-14.1); RDW-SD 40.6 fL; WBC 10.30 10^3/uL (4.4-10.8)
== END 2025-01-28 04:12 | disposition home or self-care (01) ==
LOC: LBO 04:11
PROVIDERS: PCP Nurse Practitioner; Visit Provider Nurse Practitioner Gerontology
DX: E29.1 Testicular hypofunction (principal)
CPT/HCPCS: 36415; 84403; 85027